=== PATIENT | male | born 1990 | race American Indian/Alaskan Native ===

== ENCOUNTER 2016-12-04 04:57 | Emergency (ER) | payer OTHER ==
[2016-12-04] MEDS ORDERED: HYDROmorphone 1 MG/ML Syringe IM ONE (05:08)
[2016-12-04] MEDS ORDERED: Ketorolac 60 MG/2 ML SDV IM ONE (05:08)
--- NOTE | 2016-12-04 05:08 | EDM.PDOC ---
[id number] Score (Numeric/FACES): 8 - Related Data Allergies Allergy/AdvReac Type Severity Reaction Status Date / Time No Known Allergies Allergy Verified 12/04/16 05:07 Home Meds: Home Meds Albuterol Sulfate [Ventolin Hfa] 18 gm IH ASDIRECTED PRN 04/19/16 [History] Cyclobenzaprine [Flexeril] 10 mg PO TID #15 tablet 12/04/16 [Rx] Past Medical History HEENT History: Reports: None Cardiovascular History: Reports: None Respiratory History: Reports: Other (See Below) Other Respiratory History: "flap on my lungs when I was young" Gastrointestinal History: Reports: None Genitourinary History: Reports: None Musculoskeletal History: Reports: None Neurological History: Reports: None Psychiatric History: Reports: None Endocrine/Metabolic History: Reports: None Hematologic History: Reports: None Immunologic History: Reports: None Oncologic (Cancer) History: Reports: None Dermatologic History: Reports: None - Infectious Disease History Infectious Disease History: Reports: None - Past Surgical History Head Surgeries/Procedures: Reports: None HEENT Surgical History: Reports: None Respiratory Surgical History: Reports: None GI Surgical History: Reports: None Endocrine Surgical History: Reports: None Neurological Surgical History: Reports: None Musculoskeletal Surgical History: Reports: None Dermatological Surgical History: Reports: None Social & Family History - Family History Family Medical History: Noncontributory - Tobacco Use Smoking Status *Q: Never Smoker Years of Tobacco use: 6 - Alcohol Use Days Per Week of Alcohol Use: 0 - Recreational Drug Use Recreational Drug Use: No ED ROS GENERAL - Review of Systems Review Of Systems: See Below (History of present illness) ED EXAM,LOWER BACK PAIN/INJURY - Physical Exam Exam: See Below (History of present illness) Course - Vital Signs Last Recorded V/S: Last Vital Signs Temp 36.6 C 12/04/16 06:42 Pulse 74 12/04/16 06:42 Resp 16 12/04/16 06:42 BP 127/70 12/04/16 06:42 Pulse Ox 100 12/04/16 06:42 - Orders/Labs/Meds Meds: Medications Discontinued Medications Generic Name Dose Route Start Last Admin Trade Name Freq PRN Reason Stop Dose Admin Hydromorphone HCl 1 mg 12/04/16 05:08 12/04/16 05:34 Dilaudid IM 12/04/16 05:09 1 mg ONETIME ONE Administration Ketorolac Tromethamine 60 mg 12/04/16 05:08 12/04/16 05:33 Toradol IM 12/04/16 05:09 60 mg ONETIME ONE Administration Orphenadrine Citrate 60 mg 12/04/16 05:15 12/04/16 05:34 Norflex IM 60 mg Q12H GREGORIO Administration Departure - Departure Time of Disposition: 06:50 Disposition: Home, Self-Care 01 Clinical Impression: Lumbar strain, Spasm of back muscles - Discharge Information Prescriptions: Cyclobenzaprine [Flexeril] 10 mg PO TID #15 tablet Instructions: Muscle Strain, [id number], Back Pain, Adult, [id number] Referrals: Cha Vicente MD [Primary Care Provider] - Forms: ED Department Discharge Additional Instructions: consistent with lumbar strain most likely from using the sledgehammer yesterday, complicated by lumbar muscle spasm. Take ibuprofen 800 mg every 6 hours and then take Flexeril as needed for spasm. He saw breakthrough pain use [place] but be cautious not to drink any alcohol or take any additional sedatives with these meds. If you have sleep apnea do not sleep alone while on these meds. Apply ice for the first day or 2 to work on very gentle stretches after that. Followup with your DrDenae in one to 2 days for reevaluation and to discuss when he would refer you for an MRI of your low back if your symptoms persist. Return immediately for incontinence meeting loss of bowel or bladder control or inability to use her legs. ED HPI LOWER BACK PAIN/INJURY - General Chief Complaint: Back Pain or Injury Stated Complaint: BACK PAIN Time Seen by Provider: 12/04/16 05:15 Source of Information: Reports: Patient, Family History Limitations: Reports: No Limitations - History of Present Illness INITIAL COMMENTS - FREE TEXT/NARRATIVE: HISTORY AND PHYSICAL: History of present illness: [18-year-old male with a history of asthma and high blood pressure now presents emergent [facility] complaining of severe back pain. Patient was using a sledgehammer yesterday afternoon. He feels like he twisted and injured his back during the process but was able to function until this morning. Patient went to bed with a sore back but awoke with severe right low back pain radiating down his leg rendering him with difficulty to walk or function because of severe pain.. no fevers chills sweats or shaking chills. No headache or stiff neck] normal bowel and bladder habits no incontinence. Review of systems: As per history of present illness and below otherwise all systems reviewed and negative. Past medical history: As per history of present illness and as reviewed below otherwise noncontributory. Surgical history: As per history of present illness and as reviewed below otherwise noncontributory. Social history: No reported history of drug or alcohol abuse. Family history: As per history of present illness and as reviewed below otherwise noncontributory. Physical exam: HEENT: Atraumatic, normocephalic, pupils reactive, negative for conjunctival pallor or scleral icterus, mucous membranes moist, throat clear, neck supple, nontender, trachea midline. Lungs: Clear to auscultation, breath sounds equal bilaterally, chest nontender. Heart: S1S2, regular, negative for clicks, rubs, or JVD. Abdomen: Soft, nondistended, nontender. Negative for masses or hepatosplenomegaly. Negative for costovertebral tenderness. Pelvis: Stable nontender. Right lumbar paraspinal soft tissue tenderness. Negative straight leg raise. Positive spasm right paraspinal soft tissues. Neurovascularly intact bilateral lower extremity Genitourinary: Deferred. Rectal: Deferred. Extremities: Atraumatic, negative for cords or calf pain. Neurovascular unremarkable. Neuro: Awake, alert, oriented. Cranial nerves II through XII unremarkable. Cerebellum unremarkable. Motor and sensory unremarkable throughout. Exam nonfocal. Diagnostics: [] Therapeutics: [] Impression: [] Plan: [Signs and symptoms consistent with severe lumbar strain and spasm after using a sledgehammer extensively yesterday. Patient with no evidence of cauda equina syndrome. He is alert and vigorous with a nonfocal lower extremity exam. He does have some reproducible pain in the low back with leg movement . Will give anti-inflammatory medicine analgesia and muscle relaxant. X-ray of spine pending. If negative anticipate outpatient followup with 800 mg Motrin every 6 hours Flexeril as needed as well as [place] for breakthrough pain. patient aware to use ice tonight and followup with primary care doctor as directed Definitive disposition and diagnosis as appropriate pending reevaluation and review of above. - Related Data Allergies/ADRs: Allergies Allergy/AdvReac Type Severity Reaction Status Date / Time No Known Allergies Allergy Verified 12/04/16 05:07 Home Meds: Home Meds Albuterol Sulfate [Ventolin Hfa] 18 gm IH ASDIRECTED PRN 04/19/16 [History] Cyclobenzaprine [Flexeril] 10 mg PO TID #15 tablet 12/04/16 [Rx] Departure - Departure Time of Disposition: 06:50 Disposition: Home, Self-Care 01 Condition: Good Clinical Impression: Lumbar strain, Spasm of back muscles Prescriptions: Cyclobenzaprine [Flexeril] 10 mg PO TID #15 tablet Instructions: Back Pain, Adult, [id number], Muscle Strain, [id number] Referrals: Cha Vicente MD [Primary Care Provider] - Forms: ED Department Discharge Additional Instructions: consistent with lumbar strain most likely from using the sledgehammer yesterday, complicated by lumbar muscle spasm. Take ibuprofen 800 mg every 6 hours and then take Flexeril as needed for spasm. He saw breakthrough pain use [place] but be cautious not to drink any alcohol or take any additional sedatives with these meds. If you have sleep apnea do not sleep alone while on these meds. Apply ice for the first day or 2 to work on very gentle stretches after that. Followup with your in one to 2 days for reevaluation and to discuss when he would refer you for an MRI of your low back if your symptoms persist. Return immediately for incontinence meeting loss of bowel or bladder control or inability to use her legs.
[2016-12-04 06:46] VITALS: BP 127/70
--- NOTE | 2016-12-04 10:39 | CR ---
EXAM DATE: 12/04/16 PATIENT'S AGE: 26 Patient: MAHIN BARAJAS Facility: [place], [place] Site . Site : [id number] Study: XRay Spine Lumbar [id number]/6/2017 6:04:02 AM Ordering Physician: Petr Orlando Final Report: HISTORY: Pain after swinging a sledgehammer yesterday. FINDINGS: AP, lateral and coned lateral views lumbar spine demonstrate surgical clips left upper quadrant. The lumbar spine lists to the left of midline. Disc spaces and vertebral body heights are maintained. No spondylolisthesis is seen. IMPRESSION: No acute bony abnormality within the lumbar spine. Dictated by Xiomy Lopez MD @ 12/04/2016 6:12:08 AM Dictated by: Xiomy Lopez MD @ 12/04/2016 06:12:11 (Electronic Signature) Report Signed by Proxy and Original Signed Document filed in the Medical Record. JOSÉ
== END 2016-12-04 06:42 | disposition home or self-care (01) ==
LOC: MW.ED 04:57
DX: S39.012A Strain of muscle, fascia and tendon of lower back, initial encounter (principal); M62.830 Muscle spasm of back
CPT/HCPCS: 72100; 96372; 99283; J1170; J1885; J2360; 99284

== ENCOUNTER 2024-08-06 12:40 | Emergency (ER) | payer OTHER ==
[2024-08-06 13:20] VITALS: BP 141/90; PULSE 78
== END 2024-08-06 13:19 ==
LOC: MW.ED 12:40
DX: Z02.89 Encounter for other administrative examinations (principal); I10 Essential (primary) hypertension; J45.909 Unspecified asthma, uncomplicated; Z79.899 Other long term (current) drug therapy; Z75.8 Other problems related to medical facilities and other health care
CPT/HCPCS: 99283

== ENCOUNTER 2024-10-17 02:34 | Emergency (ER) | payer OTHER ==
[2024-10-17] MEDS ORDERED: Sodium Chloride 0.9% 10 ML Syringe FLUSH PRN (03:18)
[2024-10-17] MEDS ORDERED: Sodium Chloride 0.9% 2.5 ML Syringe FLUSH PRN (03:18)
[2024-10-17] MEDS: Sodium Chloride 0.9% 1,000 ML IV ONE (03:41)
[2024-10-17] MEDS: Ketorolac 30 MG/ML SDV IVPUSH ONE (03:42)
[2024-10-17] MEDS: methylPREDNISolone Sodium Succinate 125 MG/2 ML SDV IVPUSH ONE (03:43)
[2024-10-17] MEDS: Albuterol/Ipratropium 3.0-0.5 MG/3 ML Neb Soln NEB ONE (03:43)
[2024-10-17 03:52] LABS: BASOPHILS ABSOLUTE AUTO 0.01 K/uL (0.00-0.20); BASOPHILS PERCENT AUTO 0.2 % (0.0-1.0); EOSINOPHILS PERCENT AUTO 1.9 % (0.0-6.0); HEMATOCRIT 44.6 % (42.0-52.0); HEMOGLOBIN 15.4 g/dL (14.0-18.0); IMMATURE GRAN ABSOLUTE AUTO 0.01 K/uL (0.00-0.05); IMMATURE GRAN PERCENT AUTO 0.2 % (0.0-0.4); LYMPHOCYTES ABSOLUTE AUTO 2.09 K/uL (1.00-4.80); LYMPHOCYTES PERCENT AUTO 39.4 % (24.0-44.0); MEAN CORPUSCULAR HEMOGLOBIN 30.3 pg (28.0-32.0); MEAN CORPUSCULAR HGB CONC 34.5 g/dL (32.0-36.0); MEAN CORPUSCULAR VOLUME 87.8 fL (83.0-99.0); MEAN PLATELET VOLUME 9.8 fL (9.4-12.4); MONOCYTES ABSOLUTE AUTO 0.35 K/uL (0.00-0.80); MONOCYTES PERCENT AUTO 6.6 % (0.0-8.0); NEUTROPHILS ABSOLUTE AUTO 2.74 K/uL (1.80-7.70); NEUTROPHILS PERCENT AUTO 51.7 % (41.0-71.0); PLATELET COUNT,PLT 263 K/uL (150-400); RED BLOOD CELL COUNT 5.08 M/uL (4.52-5.90)
[2024-10-17 04:19] LABS: A/G RATIO 0.8 (0.9-1.6); BILIRUBIN TOTAL 0.4 mg/dL (0.2-1.0); CALCIUM 8.1 mg/dL (8.5-10.1); CARBON DIOXIDE,CO2 24.9 mmol/L (21.0-32.0); CREATININE 1.1 mg/dL (0.8-1.3); EST CRCL DRUG DOSING (CG) 98.88 mL/min; POTASSIUM,K 4.3 mmol/L (3.5-5.1); PROTEIN TOTAL,TP 6.6 g/dL (6.4-8.2)
[2024-10-17 05:37] VITALS: BP 135/85; PULSE 80
== END 2024-10-17 05:37 | disposition home or self-care (01) ==
LOC: MW.ED 02:34
DX: J06.9 Acute upper respiratory infection, unspecified (principal); B97.89 Other viral agents as the cause of diseases classified elsewhere; J45.901 Unspecified asthma with (acute) exacerbation; I10 Essential (primary) hypertension; F17.210 Nicotine dependence, cigarettes, uncomplicated; Z79.899 Other long term (current) drug therapy
CPT/HCPCS: 36415; 71045; 80053; 83690; 85025; 87428; 93005; 96361; 96374; 96375; 99285; J1885; J2919; J7030; 93010; 99283; J7620-GY

== ENCOUNTER 2025-04-04 08:23 | Day surgery (SDC) | payer OTHER ==
[~2025-04-04 08:23] MED LIST: Sodium Chloride 0.9% 10 ML Syringe FLUSH PRN; Sodium Chloride 0.9% 2.5 ML Syringe FLUSH PRN
[2025-04-04] MEDS: Lactated Ringers 1,000 ML IV SCH (08:46)
[2025-04-04] MEDS ORDERED: propofoL 500 MG/50 ML 50 ML ONE (10:29)
[2025-04-04] MEDS ORDERED: Propofol 200 MG/20 ML SDV ONE (11:35)
[2025-04-04 12:36] VITALS: BP 118/71; PULSE 50
== END 2025-04-04 12:45 | disposition home or self-care (01) ==
LOC: MW.SDS 08:23
PROVIDERS: ATTEND Surgery
DX: D12.2 Benign neoplasm of ascending colon (principal); K31.89 Other diseases of stomach and duodenum; R13.10 Dysphagia, unspecified; K44.9 Diaphragmatic hernia without obstruction or gangrene; F17.210 Nicotine dependence, cigarettes, uncomplicated; K21.9 Gastro-esophageal reflux disease without esophagitis; Z79.899 Other long term (current) drug therapy
CPT/HCPCS: 43239; 45380; J2003; J2704; J7120